=== PATIENT | female | born 1955 | race Caucasian/White ===

== ENCOUNTER 2018-10-27 22:18 | Emergency (ER) | payer MEDICAID, OTHER ==
[~2018-10-27] VITALS: Ht 177.8 cm; Wt 64.4 kg
[~2018-10-27 22:18] MED LIST: ASPI-1152 PO; BENA40TA8 PO; HYDR-4384 PO; METF-440 PO; OMEP40CA37 PO; SIMV10TA6 PO; TRAM50TA2 PO
--- NOTE | 2018-10-27 22:33 | NUR ---
BIB SON FROM HOME. AAOX4. NAD, BREATHING IS EVEN AND UNLABORED. AMBULATORY W/O ASSIST/ CAME IN WITH C/O BILAT LEG PAIN RADIATING TO LOWER ABDOMEN AND LOWER BACK. DENIES CP. NO N/V/D. NO REPORT OF DISCOMFORT WHEN URINATION. TO ER BED 2. AWAITING MD FOR EVAL AND ORDER.
--- NOTE | 2018-10-27 22:33 | NUR ---
PT STATES THAT SHE IS NOT HAVING ANY PAIN AT THIS MOMENT.
--- NOTE | 2018-10-27 22:40 | NUR ---
AT BEDSIDE FOR EVAL
[2018-10-27] MEDS ORDERED: KETOROLAC TROMETHAMINE INJ 60 MG/2 ML VIAL IM ONE ×2 (22:49→23:00)
--- NOTE | 2018-10-27 23:04 | NUR ---
Patient discharged to home in stable condition. Written and verbal after care instructions given. Patient verbalizes understanding of instruction. Pt ambulatory with a steady gait
[2018-10-27 23:05] VITALS: BP 157/89
== END 2018-10-27 23:05 | disposition home or self-care (01) ==
LOC: ER 22:18
DX: M79.2 Neuralgia and neuritis, unspecified (principal); I10 Essential (primary) hypertension; E11.9 Type 2 diabetes mellitus without complications; K21.9 Gastro-esophageal reflux disease without esophagitis; Z98.890 Other specified postprocedural states; Z79.82 Long term (current) use of aspirin; Z88.6 Allergy status to analgesic agent
CPT/HCPCS: 96372; 99283; J1885

== ENCOUNTER 2019-11-25 11:44 | Emergency (ER) | payer MEDICARE, OTHER ==
[~2019-11-25] VITALS: Ht 170.2 cm; Wt 64.4 kg
[~2019-11-25 11:44] MED LIST changes: +OMEP40CA13 PO; -OMEP40CA37 PO; -SIMV10TA6 PO; +SIMV10TA98 PO
--- NOTE | 2019-11-25 12:00 | NUR ---
PATIENT CAME IN TO THE ER C/O ABDOMINAL PAIN X "MANY YEARS",WORSE TODAY,VOMITING EVERYTIME SHE EATS. ON ROOM AIR, BREATHING EVENLY AND UNLABORED. CONNECTED TO THE MONITOR AND PULSE OX. KEPT COMFORTABLE, WILL CONTINUE TO MONITOR ACCORDINGLY.
[2019-11-25 12:21] LABS: APPEARANCE,URINE Clear (CLEAR); BILIRUBIN,URINE Negative (NEGATIVE); BLOOD, URINE Trace-intact Ery/uL (NEGATIVE); COLOR,URINE Yellow (YELLOW); KETONES,URINE Negative (NEGATIVE); LEUKOCYTE ESTERASE ,URINE Negative (NEGATIVE); NITRITE, URINE Negative (NEGATIVE); PH,URINE 8.5 (5.0-8.0); PROTEIN,URINE Negative (NEGATIVE); UGLUCOSE Negative (NEGATIVE); UROBILINOGEN,URINE 0.2 EU/dL (0.2)
[2019-11-25 12:32] LABS: BASOPHILS % (AUTO) 0.6 % (0.0-2.0); EOSINOPHILS % (AUTO) 2.7 % (0.0-6.0); HEMATOCRIT 46 % (33-45); HEMOGLOBIN 15.3 g/dL (11.5-14.8); LYMPHOCYTES # (AUTO) 2.6 /CMM (0.8-4.8); LYMPHOCYTES % (AUTO) 38.5 % (20.0-44.0); MEAN CORPUSCULAR HGB CONC 33 g/dl (31.0-36.0); MEAN CORPUSCULAR VOLUME 80 fL (82-100); MONOCYTES # (AUTO) 0.5 /CMM (0.1-1.30); MONOCYTES % (AUTO) 7.1 % (2.0-12.0); NEUTROPHILS # (AUTO) 3.5 /CMM (1.8-8.9); NEUTROPHILS % (AUTO) 51.1 % (43.0-81.0); PLATELET COUNT (AUTO) 291 /CMM (150-450); RED BLOOD CELL COUNT(AUTO) 5.77 MIL/uL (4.0-5.2); WHITE BLOOD COUNT (AUTO) 6.9 K/uL (4.3-11.0)
[2019-11-25 12:37] LABS: BACTERIA,URINE None seen /HPF (None Seen); SQUAMOUS EPITHELIAL CELL,UR Few /HPF (None Seen); WBC,URINE 0-2 /HPF (0-3)
[2019-11-25 12:38] LABS: MUCUS,URINE Few /LPF (None Seen)
[2019-11-25 12:40] LABS: ALBUMIN 4.3 g/dL (3.4-5.0); BILIRUBIN,TOTAL 0.3 mg/dL (0.2-1.0); CALCIUM, SERUM 9.6 mg/dL (8.5-10.1); CREATININE 0.8 mg/dL (0.6-1.3); POTASSIUM 3.9 mmol/L (3.5-5.1); TOTAL PROTEIN, SERUM 7.9 g/dL (6.4-8.2)
[2019-11-25] MEDS ORDERED: IOHEXOL-300 100 ML VIAL IV ONE ×2 (13:05→13:06)
[2019-11-25] MEDS ORDERED: IV NS 0.9% 250 ML IV ONE ×2 (13:05→13:07)
--- NOTE | 2019-11-25 13:39 | NUR ---
patient wheeled via gurney going for ct scan
--- NOTE | 2019-11-25 13:45 | NUR ---
patient came back from ct
[2019-11-25 14:58] VITALS: BP 135/71
--- NOTE | 2019-11-25 14:58 | NUR ---
Patient discharged to home in stable condition. Written and verbal after care instructions given. Patient verbalizes understanding of instruction.IV removed. Catheter intact and site benign. Pressure and 4x4 applied to site. No bleeding noted.
== END 2019-11-25 14:58 | disposition home or self-care (01) ==
LOC: ER 11:47
DX: E11.40 Type 2 diabetes mellitus with diabetic neuropathy, unspecified (principal); R11.2 Nausea with vomiting, unspecified; I10 Essential (primary) hypertension; K21.9 Gastro-esophageal reflux disease without esophagitis; Z98.890 Other specified postprocedural states; Z88.6 Allergy status to analgesic agent; Z79.899 Other long term (current) drug therapy; Z79.82 Long term (current) use of aspirin; Z79.84 Long term (current) use of oral hypoglycemic drugs
CPT/HCPCS: 36415; 72131; 74177; 80048; 80076; 81001; 83690; 85025; 99285; J7050 ×2; Q9967 ×2; 81000-TC

== ENCOUNTER 2020-03-10 10:54 | Emergency (ER) | payer MEDICARE, MEDICAID ==
[~2020-03-10] VITALS: Ht 170.2 cm; Wt 70.3 kg
[~2020-03-10 10:54] MED LIST changes: -ASPI-1152 PO; +ASPI-1420 PO
[2020-03-10] MEDS ORDERED: METOCLOPRAMIDE HCL 10 MG/2 ML VIAL ONE (11:58)
[2020-03-10] MEDS: IV NS 0.9% 1,000 ML BAG IV ONE (12:02)
[2020-03-10] MEDS: METOCLOPRAMIDE HCL 10 MG/2 ML VIAL IV ONE (12:03)
--- NOTE | 2020-03-10 12:05 | NUR ---
BIB SON, C/O L SIDED HEADACHE SINCE YESTERDAY MORNING. PT AAOX3, VSS. RR EVEN & UNLABORED. DENIES CP, SOB, N/V AT THIS TIME. PT SPEAKING FLUENTLY, NO FACIAL DROOP, TONGUE MIDLINE, NO ARM/LEG DRIFTING AT THIS TIME. PT SEEN & EVAL'D BY DR. BLOOM. PLACED ON RAG SHREDDER, SR. MEDICATED ORDERED, PT HAO WELL. WILL CONT TO MONITOR.
[2020-03-10 12:12] LABS: BASOPHILS # (AUTO) 0.1 /CMM (0.0-0.2); BASOPHILS % (AUTO) 0.8 % (0.0-2.0); EOSINOPHILS % (AUTO) 2.4 % (0.0-6.0); HEMATOCRIT 46 % (33-45); HEMOGLOBIN 15.1 g/dL (11.5-14.8); LYMPHOCYTES # (AUTO) 2.5 /CMM (0.8-4.8); LYMPHOCYTES % (AUTO) 34.5 % (20.0-44.0); MEAN CORPUSCULAR HGB CONC 33 g/dl (31.0-36.0); MEAN CORPUSCULAR VOLUME 81 fL (82-100); MONOCYTES # (AUTO) 0.5 /CMM (0.1-1.30); MONOCYTES % (AUTO) 7.4 % (2.0-12.0); NEUTROPHILS # (AUTO) 3.9 /CMM (1.8-8.9); NEUTROPHILS % (AUTO) 54.9 % (43.0-81.0); PLATELET COUNT (AUTO) 267 /CMM (150-450); RED BLOOD CELL COUNT(AUTO) 5.68 MIL/uL (4.0-5.2); WHITE BLOOD COUNT (AUTO) 7.2 K/uL (4.3-11.0)
[2020-03-10 12:23] LABS: CALCIUM, SERUM 9.2 mg/dL (8.5-10.1); CREATININE 0.7 mg/dL (0.6-1.3)
[2020-03-10] MEDS ORDERED: AMOX/CLAVULANATE 875 MG TABLET ONE (14:21)
[2020-03-10] MEDS ORDERED: ACETAMINOPHEN ES 500 MG TABLET ONE (14:21)
[2020-03-10] MEDS ORDERED: IBUPROFEN 600 MG TABLET ONE (14:21)
[2020-03-10] MEDS: AMOX/CLAVULANATE 875 MG TABLET PO ONE (14:26)
[2020-03-10] MEDS: ACETAMINOPHEN 325 MG TABLET PO ONE (14:26)
[2020-03-10] MEDS: IBUPROFEN 600 MG TABLET PO ONE (14:26)
--- NOTE | 2020-03-10 14:27 | NUR ---
MEDICATED FOR JEWELL PER ERMD ORDER, PT HAO WELL
--- NOTE | 2020-03-10 14:35 | NUR ---
Patient discharged to home in stable condition. Written and verbal after care instructions given. Patient verbalizes understanding of instruction. IV removed. Catheter intact and site benign. Pressure and 4x4 applied to site. No bleeding noted.
[2020-03-10 14:36] VITALS: BP 137/80
== END 2020-03-10 14:36 | disposition home or self-care (01) ==
LOC: ER 10:59
DX: J01.90 Acute sinusitis, unspecified (principal); R51 Headache; R41.82 Altered mental status, unspecified; I10 Essential (primary) hypertension; K21.9 Gastro-esophageal reflux disease without esophagitis; E11.9 Type 2 diabetes mellitus without complications; Z98.890 Other specified postprocedural states; Z88.6 Allergy status to analgesic agent; Z79.899 Other long term (current) drug therapy; Z79.82 Long term (current) use of aspirin; Z79.84 Long term (current) use of oral hypoglycemic drugs
CPT/HCPCS: 36415; 70450; 80048; 85025; 85610; 85730; 96361; 96374; 99284; J2765; J7030

== ENCOUNTER 2021-10-20 10:07 | Emergency (ER) | payer MEDICARE, OTHER ==
[~2021-10-20] VITALS: Ht 170.2 cm; Wt 63.5 kg
[~2021-10-20 10:07] MED LIST changes: -OMEP40CA13 PO; +OMEP40CA21 PO
--- NOTE | 2021-10-20 10:16 | NUR ---
TO ER BED 9, ROSALIE C/O LEFT EAR PAIN X2DAYS, WAS IN [place] 1WK AGO AND HAD FLU SYMPTOMS THEN, AAOX3, BREATHING EVEN AND NON LABORED, AWAITING MD MANCIA
[2021-10-20] MEDS ORDERED: diphenhydrAMINE HCL 50 MG/ML VIAL ONE (10:57)
[2021-10-20] MEDS ORDERED: KETOROLAC TROMETHAMINE INJ 30 MG/ML VIAL ONE (10:58)
[2021-10-20] MEDS ORDERED: diphenhydrAMINE HCL 50 MG/ML VIAL IV ONE (11:00)
[2021-10-20] MEDS ORDERED: KETOROLAC TROMETHAMINE INJ 30 MG/ML VIAL IV ONE (11:00)
[2021-10-20] MEDS ORDERED: HYDR-3972 PO (11:25)
[2021-10-20] MEDS ORDERED: AMOX-430 PO (11:25)
--- NOTE | 2021-10-20 11:38 | NUR ---
IV removed. Catheter intact and site benign. Pressure and 4x4 applied to site. No bleeding noted.Patient discharged to home in stable condition. Written and verbal after care instructions given. Patient verbalizes understanding of instruction.
[2021-10-20 11:39] VITALS: BP 130/70
== END 2021-10-20 11:39 | disposition home or self-care (01) ==
LOC: ER 10:18
DX: J32.9 Chronic sinusitis, unspecified (principal); H69.82 Other specified disorders of Eustachian tube, left ear; I10 Essential (primary) hypertension; K21.9 Gastro-esophageal reflux disease without esophagitis; E11.9 Type 2 diabetes mellitus without complications; Z88.8 Allergy status to other drugs, medicaments and biological substances; Z79.899 Other long term (current) drug therapy
CPT/HCPCS: 70450; 96374; 96375; 99284; J1200; J1885